=== PATIENT | female | born 1990 | race Asian ===

== ENCOUNTER 2018-01-06 22:08 | Emergency (ER) | payer OTHER ==
[~2018-01-06] VITALS: Ht 160 cm; Wt 44.9 kg
[2018-01-06] MEDS ORDERED: XANAX0.25 MG ORAL (22:34)
[2018-01-06] MEDS ORDERED: Sodium Chloride 500ML 500 ML IV ONE (23:00)
[2018-01-06 23:10] VITALS: BP 114/78
[2018-01-06 23:32] LABS: BASOPHILS % (AUTO) 0.8 % (0.0-2.0); EOSINOPHILS % (AUTO) 4.3 % (0.0-3.0); HEMATOCRIT 36.4 % (37.0-47.0); HEMOGLOBIN 12.3 G/DL (12.0-16.0); LYMPHOCYTES % (AUTO) 54.6 % (20.0-45.0); MEAN CORPUSCULAR VOLUME 89 FL (80-99); MONOCYTES % (AUTO) 6.4 % (1.0-10.0); PLATELET COUNT 237 K/UL (150-450); RED CELL DISTRIBUTION WIDTH 11.7 % (11.6-14.8); WHITE BLOOD COUNT 7.1 K/UL (4.8-10.8)
[2018-01-06 23:43] LABS: ANION GAP 6 mmol/L (5-15); BLOOD UREA NITROGEN 13 mg/dL (7-18); CALCIUM 9.5 MG/DL (8.5-10.1); CARBON DIOXIDE 29 MMOL/L (21-32); CHLORIDE 104 MMOL/L (98-107); CREATININE 0.6 MG/DL (0.55-1.30); SODIUM 139 MMOL/L (136-145)
[2018-01-06 23:48] LABS: PARTIAL THROMBOPLASTIN TIME 30 SEC (23-33)
[2018-01-06 23:56] LABS: ALANINE AMINOTRANSFERASE 22 U/L (12-78); ALBUMIN 3.9 G/DL (3.4-5.0); ALBUMIN/GLOBULIN RATIO 1.1 (1.0-2.7); ALKALINE PHOSPHATASE 35 U/L (46-116); ASPARTATE AMINO TRANSFERASE 16 U/L (15-37); BILIRUBIN,TOTAL 0.2 MG/DL (0.2-1.0)
[2018-01-07] MEDS ORDERED: MECLIZINE HCL25 MG ORAL (00:23)
[2018-01-07 00:37] VITALS: BP 119/76
--- NOTE | 2018-01-07 04:58 | Emergency Room Report ---
History of Present Illness General Chief Complaint: Chest Pain Source: Patient Present Illness Allergies: Coded Allergies: No Known Allergies (Unverified , 01/06/18) Patient History Last Menstrual Period: unk Nursing Documentation-[facility] History Of Psychiatric Problem: Yes - ANXIETY Physical Exam Vital Signs Date Time Temp Pulse Resp B/P (MAP) Pulse Ox O2 Delivery O2 Flow Rate FiO2 01/06/18 22:26 98.2 67 18 114/78 100 Room Air 98.2 Medical Decision Making Diagnostic Impression: Primary Impression: Atypical chest pain Additional Impression: Chest pain Labs Test 01/06/18 23:08 White Blood Count 7.1 K/UL (4.8-10.8) Red Blood Count 4.10 M/UL (4.20-5.40) Hemoglobin 12.3 G/DL (12.0-16.0) Hematocrit 36.4 % (37.0-47.0) Mean Corpuscular Volume 89 FL (80-99) Mean Corpuscular Hemoglobin 29.9 PG (27.0-31.0) Mean Corpuscular Hemoglobin Concent 33.7 G/DL (32.0-36.0) Red Cell Distribution Width 11.7 % (11.6-14.8) Platelet Count 237 K/UL (150-450) Mean Platelet Volume 6.5 FL (6.5-10.1) Neutrophils (%) (Auto) 34.0 % (45.0-75.0) Lymphocytes (%) (Auto) 54.6 % (20.0-45.0) Monocytes (%) (Auto) 6.4 % (1.0-10.0) Eosinophils (%) (Auto) 4.3 % (0.0-3.0) Basophils (%) (Auto) 0.8 % (0.0-2.0) Prothrombin Time 10.4 SEC (9.30-11.50) Prothromb Time International Ratio 1.0 (0.9-1.1) Activated Partial Thromboplast Time 30 SEC (23-33) D-Dimer < 0.19 mg/L FEU Urine HCG, Qualitative Negative (NEGATIVE) Sodium Level 139 MMOL/L (136-145) Potassium Level 4.0 MMOL/L (3.5-5.1) Chloride Level 104 MMOL/L (98-107) Carbon Dioxide Level 29 MMOL/L (21-32) Anion Gap 6 mmol/L (5-15) Blood Urea Nitrogen 13 mg/dL (7-18) Creatinine 0.6 MG/DL (0.55-1.30) Estimat Glomerular Filtration Rate > 60 mL/min (>60) Glucose Level 95 MG/DL (74-106) Calcium Level 9.5 MG/DL (8.5-10.1) Total Bilirubin 0.2 MG/DL (0.2-1.0) Aspartate Amino Transf (AST/SGOT) 16 U/L (15-37) Alanine Aminotransferase (ALT/SGPT) 22 U/L (12-78) Alkaline Phosphatase 35 U/L (46-116) Total Protein 7.3 G/DL (6.4-8.2) Albumin 3.9 G/DL (3.4-5.0) Globulin 3.4 g/dL Albumin/Globulin Ratio 1.1 (1.0-2.7) Thyroid Stimulating Hormone (TSH) 3.685 uiU/mL (0.358-3.740) EKG Diagnostic Results Rate: normal Rhythm: NSR ST Segments: no acute changes Last Vital Signs Date Time Temp Pulse Resp B/P (MAP) Pulse Ox O2 Delivery O2 Flow Rate FiO2 01/07/18 00:37 97.3 64 18 119/76 100 Room Air Status: improved Disposition: HOME, SELF-CARE Condition: Stable Scripts Meclizine Hcl* (MECLIZINE*) 25 Mg Tablet 25 MG ORAL THREE TIMES A DAY, #20 TAB Prov: Joel Humphries MD 01/07/18 Referrals: [facility],REFERRING (PCP) Patient Instructions: Nonspecific Chest Pain Joel Humphries MD Jan 07, 2018 04:58
--- NOTE | 2018-01-07 10:52 | Diagnostic Imaging Report ---
Indication: Shortness of breath Technique: One view of the chest Comparison: Findings: Lungs and pleural spaces are clear. Heart size is normal Impression: No acute process
--- NOTE | 2018-01-07 10:55 | Diagnostic Imaging Report ---
Indication: Pain bleeding, history of D&C 2 months ago, negative test Technique: Transabdominal and transvaginal images Comparison: none Findings: Uterus measures 7 cm in length by 3.5 cm AP. Endometrium is not thickened, does demonstrate a small amount of fluid. No myometrial abnormality. The right ovary measures 2.9 cm length. The left ovary, measures 3.2 cm length. No adnexal mass. No free cul-de-sac fluid Impression: Small amount of fluid within the endometrium, likely old blood given stated clinical history. Negative for evidence of retained products of conception or other significant endometrial pathology Otherwise unremarkable
--- NOTE | 2018-01-10 16:02 | Cardiology Report ---
APPROVED REPORT EKG Measurement Heart [id number] CT [id number] Normal sinus rhythm with sinus arrhythmia Normal ECG
== END 2018-01-07 00:37 | disposition home or self-care (01) ==
LOC: EMR 23:00
DX: R07.9 Chest pain, unspecified (principal)
CPT/HCPCS: 36415; 71045; 76830; 76856; 80053; 81025; 84443; 85025; 85379; 85610; 85730; 86850; 86900; 86901; 93005; 99284; J7040

== ENCOUNTER 2018-03-01 20:04 | Emergency (ER) | payer OTHER ==
[~2018-03-01] VITALS: Ht 157.5 cm; Wt 45.4 kg
[~2018-03-01 20:04] MED LIST: MECLIZINE HCL25 MG ORAL; XANAX0.25 MG ORAL
[2018-03-01 20:15] VITALS: BP 117/76
--- NOTE | 2018-03-01 21:05 | Emergency Room Report ---
History of Present Illness General Chief Complaint: Chest Pain Source: Patient Present Illness HPI This is a 27-year-old [place] female who presents with chief complaint of chest pain, palpitation, numbness to her body. Onset was acute. Occurred around an hour ago. No fever chills but no nausea no vomiting. Said heart was beating fast. Has hypertension and chest pressure. Similar symptom in December. Workup was negative. Denies any stressors. No radiation. Nothing made it worse. Clonazepam made it better. Allergies: Coded Allergies: No Known Allergies (Unverified , 01/06/18) Patient History Past Medical History: see triage record, old chart reviewed Past Surgical History: none Pertinent Family History: none Social History: Denies: smoking Last Menstrual Period: 02/21/18 Now: No Immunizations: other Reviewed Nursing Documentation: PMH: Agreed; PSxH: Agreed Nursing Documentation-PMH Past Medical History: No History, Except For History Of Psychiatric Problem: Yes - anxiety Review of Systems Eye: Denies: eye pain, blurred vision ENT: Denies: ear pain, nose congestion, throat swelling Respiratory: Denies: cough, shortness of breath Cardiovascular: Reports: chest pain, palpitations Gastrointestinal: Denies: abdominal pain, diarrhea, nausea, vomiting Musculoskeletal: Denies: back pain, joint pain Skin: Denies: rash Neurological: Denies: headache, numbness Endocrine: Denies: increased thirst, increased urine Hematologic/Lymphatic: Denies: easy bruising All Other Systems: negative except mentioned in HPI Physical Exam Vital Signs Date Time Temp Pulse Resp B/P (MAP) Pulse Ox O2 Delivery O2 Flow Rate FiO2 03/01/18 20:08 97.9 77 18 117/76 98 Room Air vitals normal Sp02 EP Interpretation: reviewed, normal General Appearance: well appearing, no apparent distress, alert Head: normocephalic, atraumatic Eyes: bilateral eye PERRL, bilateral eye EOMI ENT: hearing grossly normal, normal pharynx Neck: full range of motion, supple, no meningismus Respiratory: chest non-tender, lungs clear, normal breath sounds Cardiovascular #1: regular rate, rhythm, no murmur Gastrointestinal: normal bowel sounds, non tender, no mass, no organomegaly, no bruit, non-distended Musculoskeletal: back normal, gait/station normal, normal range of motion Psychiatric: mood/affect normal Skin: warm/dry Medical Decision Making Diagnostic Impression: Primary Impression: Panic attack Additional Impression: Atypical chest pain ER Course Patient with atypical chest pain. No evidence of ACS, PE, dissection to name a few. We'll discharge home. EKG Diagnostic Results Rate: normal Rhythm: NSR ST Segments: no acute changes Rhythm Strip Diag. Results Rhythm Strip Time: 21:04 EP Interpretation: yes Rate: 72 Rhythm: NSR, no PVC's, no ectopy Last Vital Signs Date Time Temp Pulse Resp B/P (MAP) Pulse Ox O2 Delivery O2 Flow Rate FiO2 03/01/18 20:08 97.9 77 18 117/76 98 Room Air Status: improved Disposition: HOME, SELF-CARE Condition: Stable Patient Instructions: Nonspecific Chest Pain Additional Instructions: Follow-up with your doctor in a week. Recommend referral to see a retail sales director for echocardiogram and/or Holter monitor. Return if symptom worsen. Alban Roberts MD Mar 01, 2018 21:05
[2018-03-01 21:16] VITALS: BP 97/68
--- NOTE | 2018-03-02 16:40 | Cardiology Report ---
APPROVED REPORT EKG Measurement Heart [id number] PA [id number] Normal sinus rhythm Incomplete right bundle branch block Nonspecific T wave abnormality Abnormal ECG
== END 2018-03-01 21:16 | disposition home or self-care (01) ==
LOC: EMR 20:41
DX: F41.0 Panic disorder [episodic paroxysmal anxiety] (principal); R07.9 Chest pain, unspecified; F41.9 Anxiety disorder, unspecified
CPT/HCPCS: 93005; 99283

== ENCOUNTER 2018-07-16 11:38 | Emergency (ER) | payer OTHER ==
[~2018-07-16] VITALS: Ht 157.5 cm; Wt 43.5 kg
[~2018-07-16 11:38] MED LIST changes: +DICYCLOMINE HCL10 MG PO; +ONDANSETRON ODT4 MG BC; +RANITIDINE HCL150 MG ORAL
--- NOTE | 2018-07-16 11:45 | NUR ---
ED Nurse Note: ambulated in to ER due to headache and sharp/pressure CP x 2 months and worsen today. Per pt, she used to take advil but did not help to relieve the pain. A/Ox4. No labor breathing noted.
[2018-07-16 11:52] VITALS: BP 127/87
--- NOTE | 2018-07-16 12:03 | Emergency Room Report ---
History of Present Illness General Chief Complaint: General Complaint Source: Patient, Medical Record Present Illness HPI Patient presents with complaint of chest pain also pain to the left lower occipital region of her head Pain started earlier today when she was at work She has had this headache off and on for the past 2 months Denies any vomiting or diarrhea denies any focal weakness denies any pleurisy or shortness of breath with the chest pain Denies any abdominal pain denies any neck pain or photophobia denies any recent trauma Allergies: Coded Allergies: No Known Allergies (Unverified , 01/06/18) Patient History Past Medical History: see triage record Pertinent Family History: none Last Menstrual Period: 07/06/18 Reviewed Nursing Documentation: PMH: Agreed; PSxH: Agreed Nursing Documentation-PMH Past Medical History: No History, Except For History Of Psychiatric Problem: Yes - panic attack Review of Systems All Other Systems: negative except mentioned in HPI Physical Exam Vital Signs Date Time Temp Pulse Resp B/P (MAP) Pulse Ox O2 Delivery O2 Flow Rate FiO2 07/16/18 11:44 97.5 74 18 127/87 98 Room Air Sp02 EP Interpretation: reviewed, normal General Appearance: well appearing, no apparent distress Head: normocephalic, atraumatic Eyes: bilateral eye PERRL, bilateral eye EOMI ENT: hearing grossly normal, normal pharynx, TMs + canals normal, uvula midline Neck: full range of motion, supple, no meningismus, no bony tend Respiratory: lungs clear, normal breath sounds, no rhonchi, no respiratory distress, no retraction, no accessory muscle use Cardiovascular #1: normal peripheral pulses, regular rate, rhythm, no edema, no gallop, no JVD, no murmur Gastrointestinal: normal bowel sounds, non tender, soft, no mass, no organomegaly, non-distended, no guarding, no hernia, no pulsatile mass, no rebound Genitourinary: no CVA tenderness Musculoskeletal: normal inspection Neurologic: oriented x3, responsive, food and beverage lead III-XII nml as tested, motor strength/ tone normal, sensory intact Psychiatric: mood/affect normal Skin: normal color, no rash, warm/dry, palpation normal Lymphatic: normal inspection, no adenopathy Medical Decision Making Diagnostic Impression: Primary Impression: Chest pain Additional Impression: Headache ER Course Given the patient's history and presentation multiple differentials considered EKG was obtained which is normal patient also has developed more sudden and acute headache and CT imaging was warranted This is also negative patient resting comfortably requires close outpatient follow-up EKG Diagnostic Results Rate: normal Rhythm: NSR ST Segments: no acute changes Rhythm Strip Diag. Results EP Interpretation: yes Rate: 60 Rhythm: NSR, no PVC's, no ectopy CT/MRI/US Diagnostic Results CT/MRI/US Diagnostic Results : Impression CT head no acute disease Last Vital Signs Date Time Temp Pulse Resp B/P (MAP) Pulse Ox O2 Delivery O2 Flow Rate FiO2 07/16/18 11:44 97.5 74 18 127/87 98 Room Air Status: improved Disposition: HOME, SELF-CARE Condition: Improved Scripts Ibuprofen* (MOTRIN*) 600 Mg Tablet 600 MG ORAL Q8H PRN for For Pain, #20 TAB 0 Refills Prov: Nilay Jacob DO 07/16/18 Additional Instructions: Patient is provided with the discharge instructions notified to follow up with primary doctor in the next 2-3 days otherwise return to the er with any worsening symptoms. Please note that this report is being documented using [employer] technology. This can lead to erroneous entry secondary to incorrect interpretation by the dictating instrument. Nilay Jacob DO Jul 16, 2018 12:03
--- NOTE | 2018-07-16 12:12 | NUR ---
ED Nurse Note: Pt sent down for CT head via gurney. No s/s of distress.
--- NOTE | 2018-07-16 12:26 | NUR ---
ED Nurse Note: pt is back from CT. Remains stable.
[2018-07-16] MEDS ORDERED: IBUPROFEN600 MG ORAL (12:40)
[2018-07-16 12:43] VITALS: BP 125/85
--- NOTE | 2018-07-16 12:44 | NUR ---
ED Nurse Note: Pt cleared by health care Provider for discharge. DC instructions/prescription was given and explained to pt and verbalized understanding of teachings. All medical deviecs such as ID band removed. Pt is AAO x4, ambulatory and left with all personal belongings.
--- NOTE | 2018-07-16 12:49 | Diagnostic Imaging Report ---
. Indications: Severe headache Technique: Spiral acquisitions obtained through the brain. Angled axial and coronal 5 x 5 mm slices were reconstructed. Total dose length product 1379.6 mGycm. CTDI vol(s) 70.38 mGy. Dose reduction achieved using automated exposure control Comparison: None. Findings: No acute intrarenal hemorrhage or edema. No mass effect nor midline shift. Normal blanc-white differentiation. Normal-sized ventricles and extra axial CSF spaces. Intact calvarium. Mastoids are clear. Visualized orbits and sinuses are unremarkable. Impression: Negative The CT scanner at [facility] [place] [facility] is accredited by the [employer] and the scans are performed using protocols designed to limit radiation exposure to as low as reasonably achievable to attain images of sufficient resolution adequate for diagnostic evaluation.
== END 2018-07-16 12:44 | disposition home or self-care (01) ==
LOC: EMR 12:00
DX: R07.9 Chest pain, unspecified (principal); R51 Headache; F41.0 Panic disorder [episodic paroxysmal anxiety]
CPT/HCPCS: 70450; 93005; 99284